=== PATIENT | female | born 1995 | race Caucasian/White ===

== ENCOUNTER → 2016-09-30 | Outpatient (CLI) | payer BC ==
[2016-09-30 13:21] LABS: HEMOGLOBIN 12.8 g/dL (12.0-16.0); MEAN CORPUSCULAR HEMOGLOBIN 28.8 PG (27-31); MEAN CORPUSCULAR HGB CONC 32.8 g/dL (33-37); MEAN PLATELET VOLUME 10.2 FL (7.4-12.2); RDW COEFFICIENT OF VARIATION 14.9 % (11.5-14.5); RED BLOOD COUNT 4.45 10^6/uL (4.20-5.40); WHITE BLOOD COUNT 8.22 10^3/uL (4.8-10.8)
== END ==
LOC: LAB 09:08
PROVIDERS: ATTEND Student in an Organized Health Care Education/Training Program
DX: Z36 Encounter for antenatal screening of mother (principal); Z3A.28 28 weeks gestation of pregnancy
CPT/HCPCS: 36415; 82950; 85027

== ENCOUNTER → 2016-11-11 | Outpatient (CLI) | payer BC ==
--- NOTE | 2016-11-11 14:29 | DI ---
US OB , LIMITED,11/11/2016 1:07 PM: Clinical History: Uterine size/date discrepancy. Previous Exam: August 25, 2016 Findings: Multiple grayscale and color Doppler sonographic images are obtained through the pelvis demonstrating a normal amniotic fluid index (16.6 cm). Estimated gestational age was determined by a composite of biparietal diameter, head circumference, a bdominal circumference and femur length yielding an estimated gestational age by ultrasound of 35 wee ks 2 days. Estimated weight was 2616 g (75th percentile). Detected Doppler heart tones measure 146 beats per minute. Anatomy is grossly normal. Impression: Single live intrauterine gestation with size equal to dates. Normal amniotic fluid index.
== END ==
LOC: US 12:55
PROVIDERS: ATTEND Student in an Organized Health Care Education/Training Program
DX: O26.843 Uterine size-date discrepancy, third trimester (principal); Z87.59 Personal history of other complications of pregnancy, childbirth and the puerperium; Z3A.34 34 weeks gestation of pregnancy
CPT/HCPCS: 76815

== ENCOUNTER → 2016-11-24 | Outpatient (CLI) | payer BC | LOC: MOB LAB 10:38 | PROVIDERS: ATTEND Student in an Organized Health Care Education/Training Program | DX: Z36 Encounter for antenatal screening of mother (principal); Z3A.36 36 weeks gestation of pregnancy | CPT/HCPCS: 87150 ==

== ENCOUNTER 2016-12-29 11:37 | Outpatient (CLI) | payer BC ==
[2016-12-29] MEDS ORDERED: NORMAL SALINE 10 ML SYRINGE FLUSH IVP PRN ×2 (11:40→13:30)
[2016-12-29 13:41] VITALS: RESP 18; TEMP 98.2
--- NOTE | 2016-12-29 14:55 | DI ---
LIMITED OBSTETRICAL ULTRASOUND, 12/29/2016 11:18 AM Clinical History: Post date fetus. Previous Exam: 11/11/2016. ADJUSTED LMP: 03/17/2016. There is a single live IUP currently in vertex presentation. Amnionic fluid content is normal for thi s stage of . Amniotic fluid index is 12.8 cm. activity is observed as follows: cardiac and extremity. The placenta is anterior corpus and fundus and Grade 3. heart rate is 155 beats /minute and regular. Cervical length is estimated at 44 mm. BPD, HC, AC, and FL measurements are 98 m m, 346 mm, 360 mm, and 78 mm, respectively. These measurements correspond to EGA values of 40 weeks 2 days, 40 weeks 1 day, 40 weeks 0 days, and 40 weeks 0 days, respectively. Composite EGA is 40 weeks 1 day. The [place] EDC is 12/28/2016. EDC by adjusted LMP is 12/22/2016. Estimated weight is 3547 g, pl us or minus, 518 g. Readin. Single live fetus with vertex presentation and normal amniotic fluid content for this gestational age. Amniotic fluid index is 12.8 cm. Placenta is anterior corpus and fundus and grade 3. 2. The composite EGA is 40 weeks 1 day with an ultrasound EDC of 12/28/2016. 3. The estimated weight is 3547 g, plus or minus, 518 g. Comment: On the printed document for the measurements of the fetus, the BPD is listed as 77 mm with a n gestational age of 31 weeks 0 days. This is in error. The technologist actually has measurements of the BPD listed as 98 mm with a gestational age of 40 weeks 2 days.
--- NOTE | 2016-12-30 11:20 | PDOC(PROG) ---
Intake - - Reason for Visit/Chief Complaint: NST Admitted From: Physician Office - Estimated Due Date: 12/22/16 Gestational Age in Weeks and Days: 41 Weeks and 1 Days : 1 Para: 0 Term Births: 0 Births: 0 Number of Abortions (Spont./Elective): 0 Living Children: 0 - Labs Blood Type and Rh: AB+ Group B Strep: Negative Hepatitis B Surface Antigen: Absent HIV: Negative Rubella Status: Immune VDRL/RPR: Absent Maternal - Vital Signs Last Taken Vital Signs: Vital Signs - Last Taken Temperature 98.2 F 12/29/16 13:39 Pulse Rate Respiratory Rate 18 12/29/16 13:39 Blood Pressure 133/88 12/29/16 13:39 Pulse Ox 99 12/29/16 13:39 - Uterine Activity Uterine Contraction Monitor Mode: External Contraction Frequency(minutes): 2-7 Contraction Duration (seconds): 40-110 Uterine Contraction Pattern: Regular Uterine Tone Measurement Phase: soft Uterine Contraction Intensity: Moderate - Vaginal Discharge Vaginal Bleeding Amount: None Vaginal Discharge Amount: None Monitoring - Uterine Activity Uterine Contraction Monitor Mode: External Contraction Frequency(minutes): 2-7 Contraction Duration (seconds): 40-110 Uterine Contraction Pattern: Regular Uterine Tone Measurement Phase: soft Uterine Contraction Intensity: Moderate Results - Bedside Testing Bedside Urine Ketone: Negative Bedside Urine Leukocytes Esterase: Negative Bedside Urine Nitrite: Negative Bedside Urine Occult Blood: Negative Bedside Urine Protein: Negative Bedside Specific Bradley: 1.015 Assessment and Plan - Patient Problems (1) Post-dates Status: Acute Support Text: NST reactive. KAYA 12.8, EFW 3950 grams, grade 3 placenta. Proceed with IOL early tomorrow morning at 41 1/7 weeks gestation.
== END 2016-12-29 13:50 | disposition home or self-care (01) ==
LOC: OBOP 11:37 → US 11:37
PROVIDERS: ATTEND Student in an Organized Health Care Education/Training Program
DX: O48.1 Prolonged pregnancy (principal); Z3A.41 41 weeks gestation of pregnancy
CPT/HCPCS: 59025; 76815; 81003; 99211

== ENCOUNTER → 2016-12-29 | Outpatient (CLI) | payer BC | LOC: MOB LAB 11:14 | PROVIDERS: ATTEND Student in an Organized Health Care Education/Training Program | DX: Z36 Encounter for antenatal screening of mother (principal); Z3A.41 41 weeks gestation of pregnancy | CPT/HCPCS: 87150 ==

== ENCOUNTER 2016-12-30 00:26 | Inpatient (IN) | payer BC ==
[2016-12-30] MEDS ORDERED: NORMAL SALINE 10 ML SYRINGE FLUSH IVP PRN ×2 (05:07→16:47)
[2016-12-30] MEDS ORDERED: Naloxone Inj 0.01 MG in Normal Saline Flush 1 ML IVP PRN (05:07)
[2016-12-30] MEDS ORDERED: Carboprost Inj 250 MCG/ML AMP IM PRN ×2 (05:07→16:47)
[2016-12-30] MEDS ORDERED: fentaNYL Inj 100 MCG/2 ML VIAL IV PRN (05:07)
[2016-12-30] MEDS ORDERED: diphenhydrAMINE 50 MG/1 ML VIAL IVP PRN ×2 (05:07→16:47)
[2016-12-30] MEDS ORDERED: Famotidine Inj 20 MG in Normal Saline Flush 10 ML IVP PRN ×4 (05:07)
[2016-12-30] MEDS ORDERED: NALOXONE 0.4 MG/1 ML VIAL IVP PRN (05:07)
[2016-12-30] MEDS ORDERED: ONDANSETRON 4 MG/2 ML VIAL IVP PRN ×2 (05:07→16:47)
[2016-12-30] MEDS ORDERED: LIDOCAINE W/ SODIUM BICARB 0.5 ML SYR SUBD PRN (05:07)
[2016-12-30] MEDS ORDERED: MISOPROSTOL 200 MCG TABLET RECTAL PRN (05:07)
[2016-12-30] MEDS ORDERED: Lidocaine 1% 10 MG/ML - 20 ML VIAL SUBCUT PRN (05:07)
[2016-12-30] MEDS ORDERED: Nalbuphine Inj 20 MG/ML Ampule IVP PRN ×2 (05:07→16:47)
[2016-12-30] MEDS ORDERED: Metoclopramide Inj 10 MG/2 ML VIAL IV PRN (05:07)
[2016-12-30] MEDS ORDERED: TERBUTALINE SULFATE 1 MG/1 ML SDV SUBCUT PRN (05:07)
[2016-12-30] MEDS ORDERED: ePHEDrine Inj 5 MG in Normal Saline Flush 1 ML IVP PRN (05:07)
[2016-12-30] MEDS ORDERED: CITRIC ACID/SODIUM CITRATE 30 ML CUP PO PRN (05:07)
[2016-12-30] MEDS ORDERED: CefOXitin Inj 2 GM in Sodium Chloride 0.9% 100 ML IV PRN (05:07)
[2016-12-30] MEDS ORDERED: METHYLERGONOVINE MALEATE 0.2 MG/1 ML VIAL IM PRN ×2 (05:07→16:47)
[2016-12-30] MEDS ORDERED: CALCIUM CARBONATE 500 MG (TUMS) CHEWABLE TABLET PO PRN ×2 (05:07→16:47)
[2016-12-30] MEDS ORDERED: BUTORPHANOL TARTRATE 2 MG/1 ML VIAL IVP PRN (05:07)
[2016-12-30] MEDS ORDERED: OXYTOCIN 10 UNIT/1 ML IM PRN (05:07)
[2016-12-30] MEDS ORDERED: Phenylephrine Inj 50 MCG in Normal Saline Flush 0.5 ML IVP PRN (05:07)
[2016-12-30] MEDS ORDERED: Oxytocin 20 Units + LR 1,000 ML IV SCH ×2 (05:15→16:47)
[2016-12-30 06:01] LABS: HEMOGLOBIN 12.3 g/dL (12.0-16.0); MEAN CORPUSCULAR HEMOGLOBIN 26.7 PG (27-31); MEAN CORPUSCULAR HGB CONC 32.4 g/dL (33-37); MEAN CORPUSCULAR VOLUME 82.6 FL (81-99); MEAN PLATELET VOLUME 10.5 FL (7.4-12.2); RED BLOOD COUNT 4.6 10^6/uL (4.20-5.40)
[2016-12-30] MEDS ORDERED: Zolpidem Tab 5 MG TAB PO PRN (06:10)
[2016-12-30] MEDS: Misoprostol Tab 100 MCG TAB VAGINAL SCH (09:15)
--- NOTE | 2016-12-30 11:03 | OB.PROGRES ---
Interval History: 21 yo at 41 1/7 weeks gestation by LMP and 1st tri u/s presents to L&D for IOL for postdates. uncomplicated thus far. She has had some contractions, no LOF, VB, decreased movement. OBHx - 03/14/15 with mild shoulder dystocia, female Renita, 3592 grams at 40 6 /[address] weeks gestation with epidural[address] Dr. Ospina delivered here at [facility] [place]. Renita did have torticollis and plagiocephaly as a young infant, otherwise healthy. GHNHx - menarche around age 13, regular cycles. No h/o STIs. No paps yet. PMH - benign PSH - none NKDA Meds - PNV SH - no tobacco, alcohol or drugs. to [facility]. Lives with , daughter. Stay at home. 2 dogs and a cat. FH - PGM breast cancer in 20s PGM pancreatic cancer FH of FOB - no congenital disorders U/s done yesterday given postdates, KAYA 12.8. EFW 3950 grams, anterior placenta grade 3. Objective - Cervical Exam Anchor: starting to feel contractions now, irreg q3-5 mins Heart Rate: baseline 140, mod variability, +accels, -decels Heart Rate Interpretation Category: Category I - Labs CBC and BMP: 12/30/16 05:44 Labs - Last 24 Hours: Laboratory Results 12/30/16 Range/Units 05:44 WBC 7.27 (4.8-10.8) 10^3/uL RBC 4.60 (4.20-5.40) 10^6/uL Hgb 12.3 (12.0-16.0) g/dL Hct 38.0 (37.0-47.0) % MCV 82.6 (81-99) FL MCH 26.7 L (27-31) PG MCHC 32.4 L (33-37) g/dL RDW Std Deviation 46.8 (39-50) fL RDW Coeff of Stan 15.7 H (11.5-14.5) % Plt Count 227 (140-350) 10*3/uL MPV 10.5 (7.4-12.2) FL - Vital Signs Last Taken Vital Signs: Vital Signs - Last Taken Temperature 98.0 F 12/30/16 09:15 Pulse Rate 85 12/30/16 09:30 Respiratory Rate 16 12/30/16 09:30 Blood Pressure 118/64 12/30/16 09:30 Pulse Ox 98 12/30/16 09:30 Assessment and Plan - Patient Problems (1) Post-dates Current Visit: Yes Status: Acute Support Text: 21 yo at 41 1/7 weeks gestation, admitted for IOL for postdates. History notable for mild shoulder dystocia. -Long discussion with patient regarding risk of complications with delivering a larger infant. By u/s this does appear to be about a lb larger than her last. Risks including arrest of descent/dilation, CPD requiring , risk of repeat shoulder dystocia including more complicated this time with risk of injury to baby (nerve palsy, broken clavicle, etc.) and more traumatic for mom including 4th degree tear. At this point her and her still would like to proceed with an attempted vaginal delivery. -Initial cervical check this morning 3/40/-3, soft, midline. Will start with cytotec 25mcg pv. Recheck in 4 hours. -GBS negative 5 weeks ago, a repeat GBS was ordered yesterday, if it comes back positive today will start PCN. -Continue close observation.
[2016-12-30] MEDS: Lactated Ringers-OB Dept 1,000 ML PRIMARY IV SCH ×2 (13:00→13:45)
[2016-12-30] MEDS ORDERED: Fent/Bupiv 2mcg/0.0625% Epid 250 ML ONE (14:23)
--- NOTE | 2016-12-30 14:35 | CRNA.PROCE ---
Central Neuraxis Block Placemt - - Safety Measures: Time Out Taken, Site Verified - - Type of Block: Epidural Reason for Block: Analgesia Moniters Used During Block: SPO2, NIBP Positioning: Sitting Skin Prep Used: Betadine Draped: Yes Introducer User: 18 Gauge Karolina Local Anesthetic - Enter Amount Used in Comment Field: 1.5 % Xylocaine with Epinephrine 1:200,000 (mL): Yes (5ml test dose neg) Number of Centimeters Catheter Threaded: 4 Bioclusive Dressing Applied: Yes
[2016-12-30] MEDS ORDERED: Sodium Chloride 0.9% vial 10 ML ONE ×2 (14:37→16:59)
[2016-12-30] MEDS ORDERED: BUPivacaine Inj 0.25% PF - 10ml vial ONE (14:37)
[2016-12-30] MEDS ORDERED: fentaNYL 2 MCG/BUPIVACAINE 0.0625%/NS 0.9% 250 ML BAG EPIDURAL SCH (14:45)
--- NOTE | 2016-12-30 16:01 | OB.DEL.SUM ---
Delivery Note - Patient Problems (1) Post-dates Current Visit: Yes Status: Acute (2) (normal spontaneous vaginal delivery) Current Visit: Yes Status: AcuteSupport Text: 21 yo G2 now P1 admitted at 41 1/7 weeks gestation for IOL. She received 25mcg of cytotec pv, then spontaneously ruptured cleared fluid about 4 hours later and progressed to complete about an hour later. She pushed with 3 contractions with Angie Dudley RN. She delivered a viable male infant in OA presentation over an intact perineum. Nuchal cord x1 reduced, then the body delivered uneventfully. Cord was doubly clamped and cut by pascale. Cord gases and blood were collected. The placenta delivered spontaneously, intact, 3 vessels. EBL 300cc. Apgars 8,7. 7lbs 9.6ozs. Upon inspection of the perineum she was noted to have multiple skid johnson periurethrally. All hemostatic. She additionally had a 2nd degree perineal laceration repaired in standard fashion with 3-0 vicryl rapide. Mom and baby tolerated labor and delivery well.
[2016-12-30] MEDS ORDERED: Methylergonovine Tab 0.2 MG TAB PO PRN (16:47)
[2016-12-30] MEDS ORDERED: OXYTOCIN 10 UNIT/1 ML IM ONE (16:47)
[2016-12-30] MEDS ORDERED: HYDROcodone-APAP 5 MG -325 MG TABLET PO PRN (16:47)
[2016-12-30] MEDS ORDERED: diphenhydrAMINE 25 MG CAPSULE PO PRN (16:47)
[2016-12-30] MEDS ORDERED: GLYCERIN/WITCH HAZEL 1 BOX TOPICAL PRN (16:47)
[2016-12-30] MEDS ORDERED: Ondansetron ODT Tab 4 MG TAB PO PRN (16:47)
[2016-12-30] MEDS ORDERED: ACETAMINOPHEN 325 MG TABLET PO PRN (16:47)
[2016-12-30] MEDS ORDERED: LANOLIN HPA 40 GM TUBE TOPICAL PRN (16:47)
[2016-12-30] MEDS ORDERED: BENZOCAINE/MENTHOL SPRAY 56 GM BOTTLE TOPICAL PRN (16:47)
[2016-12-30] MEDS ORDERED: MISOPROSTOL 200 MCG TABLET RECTAL ONE (16:47)
[2016-12-30] MEDS ORDERED: Lactated Ringers-OB Dept 1,000 ML ONE ×2 (16:52→16:53)
[2016-12-30] MEDS ORDERED: Lidocaine Inj 1% 20 ML ONE (16:59)
[2016-12-30] MEDS ORDERED: ePHEDrine Inj 50 MG/ML AMP ONE (16:59)
[2016-12-30] MEDS: IBUPROFEN 800 MG TABLET PO PRN (17:45)
[2016-12-31] MEDS: IBUPROFEN 800 MG TABLET PO PRN (05:22)
[2016-12-31] MEDS: DOCUSATE 100 MG CAPSULE PO SCH ×2 (06:30→08:25)
[2016-12-31] MEDS: Misoprostol Tab 100 MCG TAB VAGINAL SCH (06:36)
[2016-12-31 07:49] LABS: HEMATOCRIT 34.3 % (37.0-47.0); MEAN CORPUSCULAR HEMOGLOBIN 26.4 PG (27-31); MEAN CORPUSCULAR HGB CONC 32.1 g/dL (33-37); MEAN CORPUSCULAR VOLUME 82.3 FL (81-99); MEAN PLATELET VOLUME 10.6 FL (7.4-12.2); RED BLOOD COUNT 4.17 10^6/uL (4.20-5.40)
[2016-12-31] MEDS ORDERED: Prenatal Multivitamin Tab 1 TAB TAB PO SCH (09:00)
--- NOTE | 2016-12-31 10:17 | DCSUMMARY ---
Hospitalization Summary Admit Date: 12/30/16 Discharge Date: 12/31/16 Primary Diagnosis:: s/p Delivery Type: Vaginal Hospital Course: 21 yo G2 now P2 admitted at 41 1/7 weeks gestation for IOL for postdates. uncomplicated, history notable for long second stage of labor and mild shoulder dystocia with first delivery. She received one dose of 25 mcg cytotec pv which worked very well to put her in active labor. She spontaneously ruptured with clear fluid and progressed to complete about an hour and a half later. She pushed with 3 contractions and delivered a TAGA male infant, 7 lbs 9.6 oz, apgars 8, 7. She had a 2nd degree perineal laceration that was repaired and several superficial abrasions periurethrally. She has done very well post op. / Postop Complications: none apparent [place] Complications: none apparent Exam - Vitals Vital Signs: Vital Signs Temperature 97.9 F Temperature Source Oral Pulse Rate [Pulse Oximeter] 80 Pulse Rate 80 Respiratory Rate 18 Blood Pressure [Right Arm] 117/67 Pulse Ox 98 Oxygen Delivery Method Room Air Height 5 ft 1 in Weight 202 lb 3.2 oz - General General Appearance: POSITIVE: No Acute Distress, Cooperative - Head Head Exam: POSITIVE: Normal Inspection - Eye Eye Exam: POSITIVE: Normal Appearance - Respiratory Respiratory Exam: POSITIVE: Clear to Auscultation - Bilaterally, Breathing Non Labored - Cardiovascular Cardiovascular Exam: POSITIVE: RRR - GI/Abdominal GI/Abdominal Exam: POSITIVE: Normal Bowel Sounds Additional GI/Abdominal Exam Details: Uterus firm at umbilicus. - Extremities Extremities Exam: POSITIVE: No Edema Present, Negative Marv's sign. NEGATIVE: Calf Tenderness - Neurological Neurological Exam: POSITIVE: Alert, Oriented x 3 - Psychiatric Psychiatric Exam: POSITIVE: Normal Affect, Normal Mood - Integumentary Integumentary Exam: POSITIVE: Normal Color Patient Problems - Patient Problem List (1) Post-dates Current Visit: Yes Status: Acute (2) (normal spontaneous vaginal delivery) Current Visit: Yes Status: AcuteSupport Text: 21 yo G2 now P2 PPD 1 s/p . -Pain well controlled -Ready for d/c to home - -PP Contraception - none -D/c to home today, f/u with me in 6 weeks
[2016-12-31 15:50] VITALS: RESP 16; TEMP 98.2
--- NOTE | 2017-01-01 07:38 | CRNA.PROGR ---
Anesthesia Note Anesthesia Progress Note: She has no questions or concerns regarding PCEA for MISTI. Catheter DC'd intact by OB rn. Laboratory Results 12/30/16 12/31/16 Range/Units 05:44 07:25 WBC 7.27 10.23 (4.8-10.8) 10^3/uL RBC 4.60 4.17 L (4.20-5.40) 10^6/uL Hgb 12.3 11.0 L (12.0-16.0) g/dL Hct 38.0 34.3 L (37.0-47.0) % MCV 82.6 82.3 (81-99) FL MCH 26.7 L 26.4 L (27-31) PG MCHC 32.4 L 32.1 L (33-37) g/dL RDW Std Deviation 46.8 46.6 (39-50) fL RDW Coeff of Stan 15.7 H 15.9 H (11.5-14.5) % Plt Count 227 231 (140-350) 10*3/uL MPV 10.5 10.6 (7.4-12.2) FL Vital Signs (24 hrs) Temp Pulse Pulse Resp BP Pulse Ox 12/31/16 15:00 98.2 F 71 16 122/67 98 12/31/16 08:08 97.9 F 80 80 18 117/67 98
== END 2016-12-31 16:14 | disposition home or self-care (01) | DRG 775 ==
LOC: OBIP 05:07
PROVIDERS: ADMIT Student in an Organized Health Care Education/Training Program; ATTEND Student in an Organized Health Care Education/Training Program
PROC: 10E0XZZ Delivery of Products of Conception, External Approach (ICD-10-PCS; principal; 2016-12-30)
PROC: 0KQM0ZZ Repair Perineum Muscle, Open Approach (ICD-10-PCS; 2016-12-30)
DX: O70.1 Second degree perineal laceration during delivery (principal); Z37.0 Single live birth; Z3A.41 41 weeks gestation of pregnancy; O48.0 Post-term pregnancy
CPT/HCPCS: 36415; 85027; A4216; J2001; J2210; J3010; J3490; J7120

== ENCOUNTER 2019-02-23 14:12 | Inpatient (IN) ==
[2019-02-23] MEDS ORDERED: FAMOTIDINE 20 MG/2 ML VIAL IVP PRN ×2 (14:19)
[2019-02-23] MEDS ORDERED: diphenhydrAMINE 50 MG/1 ML VIAL IVP PRN ×2 (14:19→15:44)
[2019-02-23] MEDS ORDERED: Phenylephrine Inj 50 MCG in Sodium Chloride 0.9% vial 0.5 ML IVP PRN (14:19)
[2019-02-23] MEDS ORDERED: CefOXitin Inj 2 GM in Sodium Chloride 0.9% 100 ML IV PRN (14:19)
[2019-02-23] MEDS ORDERED: NALOXONE 0.4 MG/1 ML VIAL IVP PRN (14:19)
[2019-02-23] MEDS ORDERED: TERBUTALINE SULFATE 1 MG/1 ML SDV SUBCUT PRN (14:19)
[2019-02-23] MEDS ORDERED: CALCIUM CARBONATE 500 MG (TUMS) CHEWABLE TABLET PO PRN ×2 (14:19→15:44)
[2019-02-23] MEDS ORDERED: OXYTOCIN 10 UNIT/1 ML IM PRN (14:19)
[2019-02-23] MEDS ORDERED: ONDANSETRON 4 MG/2 ML VIAL IVP PRN ×2 (14:19→15:44)
[2019-02-23] MEDS ORDERED: Naloxone Inj 0.01 MG in Sodium Chloride 0.9% vial 1 ML IVP PRN (14:19)
[2019-02-23] MEDS ORDERED: METHYLERGONOVINE MALEATE 0.2 MG/1 ML VIAL IM PRN (14:19)
[2019-02-23] MEDS ORDERED: Nalbuphine Inj 20 MG/ML Ampule IVP PRN ×2 (14:19→15:44)
[2019-02-23] MEDS ORDERED: LIDOCAINE W/ SODIUM BICARB 0.5 ML SYR SUBD PRN (14:19)
[2019-02-23] MEDS ORDERED: CITRIC ACID/SODIUM CITRATE 30 ML CUP PO PRN (14:19)
[2019-02-23] MEDS ORDERED: Carboprost Inj 250 MCG/ML AMP IM PRN (14:19)
[2019-02-23] MEDS ORDERED: BUTORPHANOL TARTRATE 2 MG/1 ML VIAL IVP PRN (14:19)
[2019-02-23] MEDS ORDERED: ePHEDrine Inj 50 MG/ML AMP IVP PRN (14:19)
[2019-02-23] MEDS ORDERED: LIDOCAINE HCL 2 % 10 ML JELLY URO-JECT TOPICAL PRN ×2 (14:19→15:44)
[2019-02-23] MEDS ORDERED: Lidocaine 1% 10 MG/ML - 20 ML VIAL SUBCUT PRN (14:19)
[2019-02-23] MEDS ORDERED: Metoclopramide Inj 10 MG/2 ML VIAL IV PRN (14:19)
[2019-02-23] MEDS ORDERED: MISOPROSTOL 200 MCG TABLET RECTAL PRN (14:19)
[2019-02-23] MEDS ORDERED: fentaNYL Inj 100 MCG/2 ML VIAL IV PRN (14:19)
[2019-02-23] MEDS ORDERED: Oxytocin 20 Units + LR 20 UNIT/1,000 ML BAG IV SCH ×2 (14:30→15:44)
[2019-02-23] MEDS ORDERED: Lactated Ringers-OB Dept 1,000 ML PRIMARY IV SCH (14:30)
[2019-02-23 14:35] LABS: Hematocrit [HCT] 43.3 % (37.0-47.0); Hemoglobin [HGB] 14.1 g/dL (12.0-16.0); MEAN CORPUSCULAR HEMOGLOBIN 26.9 PG (27-31); MEAN CORPUSCULAR HGB CONC 32.6 g/dL (33-37); MEAN CORPUSCULAR VOLUME 82.5 FL (81-99); MEAN PLATELET VOLUME 11.9 FL (7.4-12.2); RED BLOOD COUNT 5.25 10^6/uL (4.20-5.40)
--- NOTE | 2019-02-23 15:16 | OB.DEL.SUM ---
Delivery Note Delivery Summary: 23 yo G3 now P3 admitted in active labor with an anterior lip. After I arrived, I ruptured her with return of clear fluid. She pushed with one contraction and at 1432 via normal spontaneous vaginal delivery she delivered a TAGA female infant in DA position over an intact perineum without epidural anesthesia. No nuchal cord was noted. Her head, shoulders, and body were delivered easily. Infant was placed on mom's abdomen. Cord clamping was delayed approx 1 minute. Cord was doubly clamped and cut by the father. Her placenta delivered spontaneously, intact, with 3-vessel cord at 1437. She had a 1st degree perineal laceration that was repaired in routine fashion with 3-0 vicryl rapide after infiltrated with 1% lidocaine without epi. She did have periurethral skid johnson that were hemostatic. EBL 200cc. Mom and baby tolerated delivery well. Apgars 8, 9. - Patient Problems (1) (normal spontaneous vaginal delivery) Current Visit: Yes Status: Acute Code(s): O80 - Encounter for full-term uncomplicated delivery
[2019-02-23] MEDS ORDERED: diphenhydrAMINE 25 MG CAPSULE PO PRN (15:44)
[2019-02-23] MEDS ORDERED: GLYCERIN/WITCH HAZEL 1 BOX TOPICAL PRN (15:44)
[2019-02-23] MEDS ORDERED: Ondansetron ODT Tab 4 MG TAB PO PRN (15:44)
[2019-02-23] MEDS ORDERED: BENZOCAINE/MENTHOL SPRAY 56 GM BOTTLE TOPICAL PRN (15:44)
[2019-02-23] MEDS ORDERED: Lidocaine 1% 10 MG/ML - 20 ML VIAL INTRADERM PRN (15:44)
[2019-02-23] MEDS ORDERED: ACETAMINOPHEN 325 MG TABLET PO PRN (15:44)
[2019-02-23] MEDS ORDERED: LANOLIN HPA 40 GM TUBE TOPICAL PRN (15:44)
[2019-02-24] MEDS: IBUPROFEN 800 MG TABLET PO PRN ×2 (03:28→15:10)
[2019-02-24 04:57] LABS: Hematocrit [HCT] 35.3 % (37.0-47.0); Hemoglobin [HGB] 11.2 g/dL (12.0-16.0); MEAN CORPUSCULAR HEMOGLOBIN 26.6 PG (27-31); MEAN CORPUSCULAR HGB CONC 31.7 g/dL (33-37); MEAN CORPUSCULAR VOLUME 83.8 FL (81-99); MEAN PLATELET VOLUME 11.2 FL (7.4-12.2); RED BLOOD COUNT 4.21 10^6/uL (4.20-5.40)
[2019-02-24] MEDS ORDERED: Lactated Ringers-OB Dept 1,000 ML ONE (05:52)
[2019-02-24 06:53] VITALS: RESP 16
[2019-02-24] MEDS ORDERED: MMR VACCINE 12500 UNIT/0.5 ML SUBCUT ONE (09:00)
[2019-02-24] MEDS ORDERED: DOCUSATE 100 MG CAPSULE PO SCH (09:00)
[2019-02-24] MEDS ORDERED: Prenatal Multivitamin Tab 1 TAB TAB PO SCH (09:00)
[2019-02-24 13:57] VITALS: BP 113/69; TEMP 98.4; O2SAT 96
--- NOTE | 2019-02-24 14:44 | OB.PROGRES ---
Subjective Post Day: 1 Pain Management: PO Olvera Catheter: No Flatus: Yes Lochia Color: Rubra/Red Scant < 10 ml Diet: Regular Feeding Method: / Bottle Ambulating: Yes Objective - General General Appearance: POSITIVE: No Acute Distress, Cooperative - Cardiovacular Cardiovascular Exam: POSITIVE: RRR, No Murmur Edema: +1 Pedal Edema Extremities: Negative Marv's - Bilaterally - Respiratory Respiratory Exam: POSITIVE: Clear to Auscultation - Bilaterally, Breathing Non Labored - Abdomen Bowel Sounds: Present Assesstment / Plan (1) (normal spontaneous vaginal delivery) Current Visit: Yes Status: Acute Assessment / Plan: -routine cares. -needs MMR prior to d/c. -Rh positive blood type. -breast feeding ok--hasn't eaten since 1000 this morning. Encouraged mom to feed prior to d/c. -f/u: 6 week PP check. DISCHARGE NOTE: Admitting diagnosis: Labor Discharge diagnosis: labor, delivered. Outcome: normal spontaneous vaginal delivery. Disposition: home. F/u: 6 week PP visit. Diet: regular.
== END 2019-02-24 16:31 | disposition home or self-care (01) | DRG 807 ==
LOC: OBOP 14:12 → OBIP 14:19
PROVIDERS: ADMIT Student in an Organized Health Care Education/Training Program; ATTEND Family Medicine